=== PATIENT | male | born 1990 | race African-American/Black ===

== ENCOUNTER 2016-10-31 23:06 | Emergency (ER) | payer SELFPAY ==
[~2016-10-31] VITALS: Ht 188 cm; Wt 122.5 kg
[2016-11-01 01:12] VITALS: BP 138/99
== END 2016-11-01 01:30 | disposition home or self-care (01) ==
LOC: EDBD 23:06 → EME 23:06
PROC: 0QSFXZZ Reposition Left Patella, External Approach (ICD-10-PCS; principal; 2016-10-31)
DX: S83.005A Unspecified dislocation of left patella, initial encounter (principal); X50.1XXA Overexertion from prolonged static or awkward postures, initial encounter; Y93.72 Activity, wrestling; F17.200 Nicotine dependence, unspecified, uncomplicated
CPT/HCPCS: 73564; 99281; 99285